=== PATIENT | male | born 1940 | race Caucasian/White ===

== ENCOUNTER 2017-08-10 05:55 | Day surgery (SDC) | payer OTHER ==
[~2017-08-10] VITALS: Ht 172.7 cm; Wt 88.5 kg
[~2017-08-10 05:55] MED LIST: ASPI81EC; FISH OIL PO; FLAX PO; Hair, Skin & N1 EACH PO; IRBHYD150; Lovastatin20 MG PO; SYSTANE BALANCE10 ML BOTHEYES; TIMO10T BOTHEYES; Travatan Z5 ML BOTHEYES; VALSARTAN-HCTZ1 EAC1 PO
== END 2017-08-10 22:55 | disposition home or self-care (01) ==
LOC: ORSCMMR 05:55 → ORD 07:30 → ORSCMMR 07:30
PROVIDERS: Surgery
PROC: 0YU50JZ Supplement Right Inguinal Region with Synthetic Substitute, Open Approach (ICD-10-PCS; principal; 2017-08-10 07:30)
DX: K40.91 Unilateral inguinal hernia, without obstruction or gangrene, recurrent (principal); Z87.891 Personal history of nicotine dependence; I10 Essential (primary) hypertension; E78.5 Hyperlipidemia, unspecified; Z79.82 Long term (current) use of aspirin; Z79.899 Other long term (current) drug therapy
CPT/HCPCS: C1781; J0690; J1100; J1885; J2250; J2405; J3010; J7120

== ENCOUNTER → 2022-09-29 | Outpatient (CLI) | payer OTHER ==
[2022-09-29 17:13] LABS: Creatinine Urine 79.2 mg/dL (27.00-270.00)
== END | disposition home or self-care (01) ==
LOC: LAB 06:00 → LAB SHORT 06:00 → LAB FUT 09-25 13:10
PROVIDERS: Internal Medicine Nephrology
DX: N18.30 Chronic kidney disease, stage 3 unspecified (principal); D63.1 Anemia in chronic kidney disease; N25.81 Secondary hyperparathyroidism of renal origin; E55.9 Vitamin D deficiency, unspecified; E78.00 Pure hypercholesterolemia, unspecified; N40.1 Benign prostatic hyperplasia with lower urinary tract symptoms; R76.9 Abnormal immunological finding in serum, unspecified; R94.5 Abnormal results of liver function studies; R94.6 Abnormal results of thyroid function studies; D51.8 Other vitamin B12 deficiency anemias; D52.8 Other folate deficiency anemias; D50.9 Iron deficiency anemia, unspecified
CPT/HCPCS: 81050; 82043; 82570; 84156

== ENCOUNTER 2022-11-13 18:51 | Inpatient (IN) | payer OTHER ==
[~2022-11-13] VITALS: Ht 175.3 cm; Wt 86.4 kg
[2022-11-13 19:31] LABS: Source, Urine Clean Catch
[2022-11-13] MEDS ORDERED: OLME20 PO (19:42)
[2022-11-13] MEDS ORDERED: ASPI81CH PO (19:42)
[2022-11-13 19:46] LABS: Bilirubin, Urine Neg (Neg); Blood, Urine 5+ (Neg); Color, Urine Red (P-Yellow); Glucose Qualitative, Urine Neg (Neg); Ketones, Urine Neg (Neg); Leukocyte Esterase, Urine Neg (Neg); Nitrite, Urine Neg (Neg); Protein, Urine 4+ (Neg); Urobilinogen, Urine NORM (Normal); pH, Urine 6.5 (5.0-8.0)
[2022-11-13 19:50] LABS: Red Blood Cells, Urine TNTC /hpf (0-2)
[2022-11-13 19:52] LABS: Bacteria Few /hpf; RBC Cast 0-2 /lpf (0); Squamous Epithelial Cells Rare /hpf (Few)
[2022-11-13 19:53] LABS: Appearance, Urine Bloody (Clear)
[2022-11-13 19:57] LABS: BASOPHILS ABSOLUTE AUTO 0.03 K/mm3 (0.00-0.23); BASOPHILS PERCENT AUTO 0 % (0-2); EOSINOPHILS ABSOLUTE AUTO 0.18 K/mm3 (0.00-0.68); EOSINOPHILS PERCENT AUTO 1 % (0-6); Hematocrit 31.5 % (37.0-53.0); Hemoglobin 10.3 g/dL (13.5-17.5); IMMATURE GRAN ABSOLUTE AUTO 0.12 K/mm3 (0.00-0.10); IMMATURE GRAN PERCENT AUTO 1 % (0-1); LYMPHOCYTES ABSOLUTE AUTO 1.71 K/mm3 (0.84-5.20); LYMPHOCYTES PERCENT AUTO 13 % (21-46); MONOCYTES ABSOLUTE AUTO 1.03 K/mm3 (0.16-1.47); MONOCYTES PERCENT AUTO 8 % (4-13); Mean Corpuscular HGB 30.8 pg (26.0-34.0); Mean Corpuscular HGB Conc 32.7 g/dL (31.5-36.5); Mean Corpuscular Volume 94 fL (80-100); Mean Platelet Volume 10.8 fL (9.1-12.4); NEUTROPHILS ABSOLUTE AUTO 10.53 K/mm3 (1.96-9.15); NEUTROPHILS PERCENT AUTO 77 % (41-73); Platelet Count 263 K/mm3 (150-400); RDW Coefficient Variation 13.4 % (11.7-14.2); RDW Standard Deviation 46.2 fL (35.1-46.3); Red Blood Cell Count 3.34 M/mm3 (4.30-5.90)
[2022-11-13 20:07] LABS: Albumin, Blood 3.4 g/dL (3.4-5.0); Albumin/Globulin Ratio 0.9 (0.8-1.8); Bilirubin, Total 0.3 mg/dL (0.1-1.0); Bun/Creatinine Ratio 12.9 (12.0-20.0); Calcium, Blood 8.6 mg/dL (8.5-10.1); Creatinine, Blood 1.7 mg/dL (0.60-1.20); Globulin, Blood 3.7 g/dL (2.2-4.0); Potassium, Blood 4.7 mmol/L (3.5-5.5); Total Protein, Blood 7.1 g/dL (6.4-8.2)
[2022-11-14 02:57] LABS: Hematocrit 28.3 % (37.0-53.0); Hemoglobin 9.2 g/dL (13.5-17.5)
[2022-11-14] MEDS ORDERED: TIMO.5OPSO BOTHEYES (04:43)
[2022-11-14] MEDS ORDERED: OLME20 PO (04:44)
[2022-11-14] MEDS ORDERED: LATANOPROST2.5 M3 BOTHEYES (04:45)
[2022-11-14 05:23] VITALS: BP 175/74
[2022-11-14 08:18] VITALS: BP 134/63
[2022-11-14 09:55] LABS: Hematocrit 28.7 % (37.0-53.0); Hemoglobin 9.5 g/dL (13.5-17.5)
[2022-11-14 15:32] LABS: BASOPHILS ABSOLUTE AUTO 0.02 K/mm3 (0.00-0.23); BASOPHILS PERCENT AUTO 0 % (0-2); EOSINOPHILS ABSOLUTE AUTO 0.08 K/mm3 (0.00-0.68); EOSINOPHILS PERCENT AUTO 1 % (0-6); Hematocrit 27.2 % (37.0-53.0); Hemoglobin 8.9 g/dL (13.5-17.5); IMMATURE GRAN ABSOLUTE AUTO 0.08 K/mm3 (0.00-0.10); IMMATURE GRAN PERCENT AUTO 1 % (0-1); LYMPHOCYTES ABSOLUTE AUTO 1.88 K/mm3 (0.84-5.20); LYMPHOCYTES PERCENT AUTO 18 % (21-46); MONOCYTES ABSOLUTE AUTO 1.28 K/mm3 (0.16-1.47); MONOCYTES PERCENT AUTO 12 % (4-13); Mean Corpuscular HGB 30.8 pg (26.0-34.0); Mean Corpuscular HGB Conc 32.7 g/dL (31.5-36.5); Mean Corpuscular Volume 94 fL (80-100); Mean Platelet Volume 10.7 fL (9.1-12.4); NEUTROPHILS PERCENT AUTO 69 % (41-73); Platelet Count 232 K/mm3 (150-400); RDW Coefficient Variation 13.5 % (11.7-14.2); RDW Standard Deviation 46.5 fL (35.1-46.3); Red Blood Cell Count 2.89 M/mm3 (4.30-5.90); White Blood Cell Count 10.74 K/mm3 (4.00-11.30)
[2022-11-14 15:57] LABS: Albumin, Blood 2.8 g/dL (3.4-5.0); Albumin/Globulin Ratio 0.8 (0.8-1.8); Bilirubin, Total 0.3 mg/dL (0.1-1.0); Bun/Creatinine Ratio 16.8 (12.0-20.0); Calcium, Blood 8.3 mg/dL (8.5-10.1); Creatinine, Blood 1.31 mg/dL (0.60-1.20); Globulin, Blood 3.3 g/dL (2.2-4.0); Potassium, Blood 4.4 mmol/L (3.5-5.5); Total Protein, Blood 6.1 g/dL (6.4-8.2)
[2022-11-14 16:27] VITALS: BP 123/65
[2022-11-14 19:57] VITALS: BP 124/62
--- NOTE | 2022-11-14 19:58 | NUR ---
SUMMARY- RN IRRIGATED MAGALLON MULTIPLE TIMES THIS SHIFT W/MANY BLOOD CLOTS. PT'S PAIN WELL CONTROLLED W/PAIN MEDS. CBI RUNNING THE ENTIRE SHIFT. 1L URINE OUTPUT THIS SHIFT.
[2022-11-14 21:26] LABS: Hematocrit 28.4 % (37.0-53.0); Hemoglobin 9.1 g/dL (13.5-17.5)
[2022-11-15 04:44] VITALS: BP 136/69
[2022-11-15 05:20] LABS: Hematocrit 26.7 % (37.0-53.0); Hemoglobin 8.5 g/dL (13.5-17.5); Mean Corpuscular HGB 30.4 pg (26.0-34.0); Mean Corpuscular HGB Conc 31.8 g/dL (31.5-36.5); Mean Corpuscular Volume 95 fL (80-100); Mean Platelet Volume 10.9 fL (9.1-12.4); Platelet Count 209 K/mm3 (150-400); RDW Coefficient Variation 13.6 % (11.7-14.2); RDW Standard Deviation 47.9 fL (35.1-46.3); White Blood Cell Count 10.17 K/mm3 (4.00-11.30)
[2022-11-15 05:42] LABS: Bun/Creatinine Ratio 14.6 (12.0-20.0); Calcium, Blood 8.3 mg/dL (8.5-10.1); Creatinine, Blood 1.44 mg/dL (0.60-1.20); Potassium, Blood 4.4 mmol/L (3.5-5.5)
--- NOTE | 2022-11-15 06:26 | NUR ---
SHIFT SUMMARY PT IS A&O4, SB TO THE BR, CBI PATENT AND DRAINING PINK FLUID, NO IRRIGATION NEEDED OVERNIGHT OR MANUAL CLOT REMOVAL, 1.2 L URINE OUTPUT FROM 3 WAY, PRN PAIN MEDICATION GIVEN PER MAR X1, NO ACUTE OVERNIGHT EVENTS, CONTINUE POC,
[2022-11-15 07:52] VITALS: BP 123/70
--- NOTE | 2022-11-15 16:08 | NUR ---
PT A/OX4, PLEASANT AND COOPERATIVE, THE PT IS UP WITH ASSIST DUE TO IV AND CONTINUOS IRRIGATION LINES. THIS AM THE PT HAD A CLOT BLOCKING IRRIGATION. THE CLOT WAS ASPIRRATED. SINCE THEN THE PTS URINE HAS CLEARED TO A LIGHT PINK THIS AFTERNOON AND THE IRRIGATION HAS BEEN CONTINUOS. THE PT WAS MEDICATED FOR PAIN X1 SO FAR THIS SHIFT FOR LOW BACK PAIN.PTS HAS BEEN AT THE BEDSIDE FOR MOST OF THE DAY. PT IS UP IN THE CHAIR T/O THE DAY. CALL LIGHT IN REACH. WILL CONTINUE TO MONIOTR AND ASSESS FOR CHANGES
[2022-11-15 16:41] VITALS: BP 126/62
[2022-11-15 19:33] VITALS: BP 142/54
[2022-11-16 03:59] VITALS: BP 138/63
[2022-11-16 08:18] VITALS: BP 144/72
[2022-11-16 08:59] LABS: Hematocrit 29.4 % (37.0-53.0); Hemoglobin 9.2 g/dL (13.5-17.5)
--- NOTE | 2022-11-16 09:00 | NUR ---
pt sitting up in a chair, at bedside, Dr. Olmedo in room to see pt, pt a/ox4 pleasant and cooperative with care, follows commands well, denies pain, lungs are clear t/o, resp even and unlabored, no cough noted, hrr, tele in place running sr per monitor, see strip, no edema noted, ppp+2, cap refill <3sec, vs stable, afebrile, iv site to selam is infiltrated, stopped fluids, Dr. Olmedo ok to hold fluids for now, pt eating and drinking well, btx4, abd flat soft nontender, voids via cbi, urine is slightly pink, was reported by night rn that there was one clot throughout the night, skin c/w/d, carlos eduardo zamudio, call light in reach.
--- NOTE | 2022-11-16 18:11 | NUR ---
pt cbi has intermitantly ran clear and watermelon color, he got up this afternoon to have a bm and became pretty red for a couple hrs, bladder started spasming so hand irrigated it, removed a few small clots, then ran clear again, he is currently running clear, no complaints or needs this shift. has been at bedside, call light in reach.
[2022-11-16 19:53] VITALS: BP 142/67
[2022-11-17 04:52] VITALS: BP 142/66
[2022-11-17 05:14] LABS: Hematocrit 25.8 % (37.0-53.0); Hemoglobin 8.2 g/dL (13.5-17.5)
--- NOTE | 2022-11-17 05:18 | NUR ---
PT IS A&O4, SB TO THE BR, CBI DRAINING WATERMELON COLORED FLUID, DARKER THAN PREVIOUS SHIFT, MANUALLY REMOVED ONE CLOT OVERNIGHT, PT IV INFILTRATED ON DAY SHIFT YESTERDAY THIS NURSE UNSUCESSFUL PLACING A NEW ONE, PAIN MED GIVEN PER MAR X1, RA, VSS, CONTINUE POC
[2022-11-17 08:48] VITALS: BP 145/62
[2022-11-17 16:42] VITALS: BP 143/64
--- NOTE | 2022-11-17 17:20 | NUR ---
SHIFT SUMMARY: Pt remains A&O x3 this shift. VSS, Resp even nonlabored on RA. Back pain managed with po med. CBI in progress this shift with Q 4 hour irrigation x24 hour started at noon. One small clot noted at 1600 irrigation. Other griffin pink in color output. Pain and safety managed. Call light in reach. at bedside. Will continue to monitor.
[2022-11-17 19:35] VITALS: BP 126/58
[2022-11-18 03:27] VITALS: BP 144/67
--- NOTE | 2022-11-18 05:02 | NUR ---
SHIFT SUMMARY 82 YR M ADMITTED ON 11/14/22 FOR HYDRONEPHROSIS. FULL CODE. NO ACUTE CHANGES THIS SHIFT. CONTINUOUS BLADDER IRRIGATION STILL RUNNING. Q 4 MANUAL IRRIGATION HAS PRODUCED VERY LIGHT PINK COME BACK WITH ONE VERY SMALL BLOODCLOT @ 0400. PT IS A&O X 4 AND APPEARS TO HAVE RESTED COMFORTABLY FOR MOST OF THIS SHIFT. C/O BACK PAIN AT BEDTIME AND ASKED FOR A PAINPILL BUT NO C/O PAIN OR DISCOMFORT SINCE THEN.
[2022-11-18 05:11] LABS: Hematocrit 23.1 % (37.0-53.0); Hemoglobin 7.2 g/dL (13.5-17.5)
[2022-11-18 05:28] LABS: Bun/Creatinine Ratio 14.7 (12.0-20.0); Calcium, Blood 7.8 mg/dL (8.5-10.1); Creatinine, Blood 1.29 mg/dL (0.60-1.20); Potassium, Blood 4.2 mmol/L (3.5-5.5)
[2022-11-18 07:44] VITALS: BP 154/72
[2022-11-18 11:53] LABS: Hematocrit 26.5 % (37.0-53.0); Hemoglobin 8.4 g/dL (13.5-17.5)
[2022-11-18 15:44] VITALS: BP 140/62
--- NOTE | 2022-11-18 17:38 | NUR ---
SHIFT SUMMARY: PT A&O X4. PT PLEASANT AND COOPERATIVE WITH ALL CARE. CONTINUOUS IRRIGATION CONTINUED UNTIL AROUND 1400. URINE WAS BRIGHT PINK THIS AM. SPED IRRIGATION UP AND LATER BECAME CLEAR. AT THIS TIME, DR. MUSTAFA STATED TO D/C CONTINUOUS IRRIGATION. CONTINUOUS REMAINS IN PLACE CLAMPED DUE TO POSSIBLE NEED TO RESTART IF URINE BECOME DARK. Q4 BLADDER IRRIGATION COMPLETED. PT C/0 BLADDER PAIN AROUND 1200. SMALL CLOT RELEASED WITH 1200 IRRIGATION. PT HAD NO C/O BLADDER PAIN SINCE. PT HAS CHRONIC BACK PAIN. PAIN MEDICATION GIVEN PER EMAR. PT RECEIVING NS @100/HR IN L. WRIST IV. AT BEDSIDE THROUGHOUT SHIFT. PT ONE PERSON ASSIST W/TRANSFERS. CALL LIGHT IN REACH. BED IN LOWEST POSITION. NO C/O PAIN AT THIS TIME. WILL CONTINUE TO MONITOR.
[2022-11-18 19:42] VITALS: BP 150/58
--- NOTE | 2022-11-18 20:51 | NUR ---
PER DR MUSTAFA'S REQUEST, CALLED TO SEE IF ANY UROLOGY/MEDICAL FOR UROLGY BEDS WERE AVAILABLE AT [facility]. SPOKE WITH [facility] IN [place], NO BEDS AVAILABLE, SPOKE WITH [facility] IN [place] AND [facility] IN [place], NO BEDS. SPOKE WITH [facility] IN [place], POSSIBLE BED IF THEY ARE ABLE TO COME OFF OF DIV[facility] WHICH MAY HAPPEN IN A COUPLE OF HOURS. SPOKE WITH SILVERIO TO LET HIM KNOW. WILL LET THE PRIMARY RN KNOW. WILL WAIT FOR A CALL FROM [facility] IN A COUPLE OF HOURS, IF I DON'T HEAR FROM THEM IN A COUPLE OF HOURS, I WILL CALL THEM AND CHECK ON THEIR BED AVAILABILITY.
--- NOTE | 2022-11-18 22:07 | NUR ---
[facility] CALLED BACK AND REPORTED THEY ARE NOT ABLE TO COME OFF OF DIVERT YET BUT FOR US TO CALL AND CHECK BACK IN THE AM. THEY HAVE A TICKET OPENED UP ON THE PATIENT AND WILL CALL US BACK IF THAT CHANGES AND A BED BECOMES AVAILABLE TONIGHT. WILL LET THE DR AND THE PRIMARY RN KNOW.
--- NOTE | 2022-11-18 22:58 | NUR ---
EMPTIED MAGALLON BAG, PINK, CLEAR, NO CLOTS. STARTED NEW BAG OF IRRIGATION FOR CBI. PT DENIES PRESSURE AT THIS TIME, NO LEAKING AROUND MAGALLON AT THIS TIME.
--- NOTE | 2022-11-18 23:16 | NUR ---
[facility] CALLED BACK AND REPORTED THEY HAD A BED AVAILABLE. PT WAS CONCERNED WITH HOW LONG HE WOULD BE WAITING FOR A PROCEDURE AND WHAT THEY MIGHT BE ABLE TO DO OR NOT. HE WAS ALSO CONCERNED ABOUT THE DISNTANCE AND PT WAS VERY CONCERNED ABOUT WHAT HIS WIFES WISHES WERE REGARDING POSSIBLY GOING TO [facility], AFTER MULTIPLE CALLS I WAS FINALLY ABLE TO SPEAK WITH HER AND SHE IS OK WITH HIM GOING TO [facility]. THE ACCEPTING UROLOGIST ALSO REPORTED THEY WOULD MOST LIKELY BE ABLE TO DO A SCOPE TOMORROW. I RELAYED THIS INFORMATION TO THE PT AND HE IS AGREEABLE TO THE TRANSFER. I WILL CALL THE DR HERE BACK AND LET HIM KNOW.
[2022-11-18 23:43] VITALS: BP 150/58
[2022-11-18 23:52] VITALS: BP 150/58
[2022-11-19 00:17] VITALS: BP 142/58
[2022-11-19 00:23] VITALS: BP 150/58
[2022-11-19 00:28] VITALS: BP 150/58
[2022-11-19 00:33] VITALS: BP 150/58
--- NOTE | 2022-11-19 01:00 | NUR ---
[facility] TRANSFER NOTE: CALLED REPORT TO GINNY BAIRD AT [facility] IN [place] ~0030 THIS AM. ALL QUESTIONS ANSWERED WITH NO FUTHER CONCERNS/QUESTIONS REPORTED. [facility] SHORTLY ARRIVED ~0055 THIS AM FOR TRANSPORT. [facility] DESIGNER GIVEN REPORT, ALL QUESTIONS ANSWERED WITH NO OTHER CONCERNS REPORTED. PT A/Ox4 AND COOPERATIVE WITH CARE. ABLE TO ANSWER QUESTIONS APPROPRIATELY AND ABLE TO MAKE HIS NEEDS KNOWN. CARDIAC, MED STATUS WITH NO TELE, NO REPORTS OF ANY CP OR PRESSURE. SBP STABLE RANGING IN THE 140-150 RANGE. RESPIRATORY, MAINTAINS SPO2 >92% ON RA WITH NO REPORTS OF SOB OR DYSPNEA EVEN WITH EXERTION. LS CLEAR TO ASCULTATION. GI/, MAGALLON CATH REMAINED PATENT AND DRAINING CLEAR-PINK/RED COLORED URINE. CBI UNDERWAY WITH INTERMITTENT EPISODES OF CATH BECOMING CLOGGED DUE TO BLOOD CLOTS. Q4HR MANUAL IRRIGATION WELL PRN TO MAINTAIN PATENCY PERFORMED ORDERED. ABD ABD SOFT SOME TENDERNESS NOTED ON LEFT FLANK. PAIN MANAGED WELL WITH PRN MEDICATIONS. PT ABLE TO ABULATE WITH SBA DUE TO CATH/IRRIGATION EQUIPMENT. NS INFUSING ORDERED VIA EMAR. ASSESSED PT FOR RISKS OF ANY IGNITION SOURCES WELL BEHAVIORS FOR INCREASED RISKS OF FIRE DANGER. PT EDUCATED ON COMMON SOURCES OF IGNITION WELL NEED TO KEEP A SAFE ENVIRONMENT. PT VOICED HIS UNDERSTANDING WHILE HE WAS HERE. FLO [facility] UPON TRANSFER TO [facility].
== END 2022-11-19 00:56 | DRG 694 ==
LOC: ER 18:51 → ERHOLD 18:52 → MEDS 18:52 → ERHOLD 11-14 05:10 → MEDS 11-14 05:10 → ERHOLD 11-14 15:21 → MEDS 11-14 15:21
PROVIDERS: Internal Medicine; Physician Assistant; Student in an Organized Health Care Education/Training Program; ADMIT Internal Medicine
DX: N13.30 Unspecified hydronephrosis (principal); R33.9 Retention of urine, unspecified; R00.0 Tachycardia, unspecified; R31.0 Gross hematuria; N17.9 Acute kidney failure, unspecified; E78.5 Hyperlipidemia, unspecified; I12.9 Hypertensive chronic kidney disease with stage 1 through stage 4 chronic kidney disease, or unspecified chronic kidney disease; N18.30 Chronic kidney disease, stage 3 unspecified; D63.1 Anemia in chronic kidney disease; R91.1 Solitary pulmonary nodule; H40.9 Unspecified glaucoma; J92.9 Pleural plaque without asbestos; Z79.82 Long term (current) use of aspirin; Z79.899 Other long term (current) drug therapy
CPT/HCPCS: 36415; 51703; 51798; 74177; 80048; 80053; 81001; 85014; 85018; 85025; 85027; 86850; 86900; 86901; 93005; 93010; 96374; 99285-25; A9270; J3010; J7030; Q9967

== ENCOUNTER → 2022-12-08 | Outpatient (CLI) | payer OTHER ==
[~2022-12-08] MED LIST changes: +ASPI81CH PO; +LATANOPROST2.5 M3 BOTHEYES; +OLME20 PO; +TIMO.5OPSO BOTHEYES
[2022-12-08 16:05] LABS: Microalbumin, Urine Quant. 72.5 mg/L (0.000-20.000)
== END | disposition home or self-care (01) ==
LOC: LAB 09:56 → LAB SHORT 09:56 → LAB FUT 12-02 11:35
PROVIDERS: Internal Medicine Nephrology
DX: N18.30 Chronic kidney disease, stage 3 unspecified (principal); D63.1 Anemia in chronic kidney disease; N25.81 Secondary hyperparathyroidism of renal origin; E55.9 Vitamin D deficiency, unspecified; E78.00 Pure hypercholesterolemia, unspecified; N40.1 Benign prostatic hyperplasia with lower urinary tract symptoms; R76.9 Abnormal immunological finding in serum, unspecified; R94.5 Abnormal results of liver function studies; R94.6 Abnormal results of thyroid function studies
CPT/HCPCS: 81050; 82043; 82570; 84156

== ENCOUNTER → 2023-01-07 | Outpatient (CLI) | payer OTHER ==
[2023-01-07 12:09] LABS: Hematocrit 28.1 % (37.0-53.0); Mean Corpuscular HGB 29.2 pg (26.0-34.0); Mean Corpuscular Volume 91 fL (80-100); Mean Platelet Volume 11.7 fL (9.1-12.4); NRBC ABSOLUTE 0.04 K/mm3 (0.00-0.02); NRBC Auto 0.7 /100 WBC (0.0-0.2); Platelet Count 103 K/mm3 (150-400); RDW Coefficient Variation 14.5 % (11.7-14.2); RDW Standard Deviation 48.1 fL (35.1-46.3); Red Blood Cell Count 3.08 M/mm3 (4.30-5.90); White Blood Cell Count 5.56 K/mm3 (4.00-11.30)
[2023-01-07 12:19] LABS: Albumin, Blood 2.5 g/dL (3.4-5.0); Albumin/Globulin Ratio 0.7 (0.8-1.8); Bilirubin, Total 0.1 mg/dL (0.1-1.0); Bun/Creatinine Ratio 12.8 (12.0-20.0); Calcium, Blood 7.8 mg/dL (8.5-10.1); Creatinine, Blood 2.74 mg/dL (0.60-1.20); Globulin, Blood 3.8 g/dL (2.2-4.0); Potassium, Blood 4.5 mmol/L (3.5-5.5); Total Protein, Blood 6.3 g/dL (6.4-8.2)
[2023-01-07 16:39] LABS: BAND PERCENT MAN 4 % (0-8); BASOPHILS PERCENT MAN 0 % (0-2); EOSINOPHILS PERCENT MAN 0 % (0-6); LYMPHOCYTES % ATYPICAL MANUAL 2 % (0-0); LYMPHOCYTES ABSOLUTE MAN 0.83 K/mm3 (0.84-5.20); LYMPHOCYTES PERCENT MAN 13 % (21-46); METAMYELOCYTE ABSOLUTE MAN 0.11 K/mm3 (0.00-0.00); METAMYELOCYTE PERCENT MAN 2 % (0-0); MONOCYTES ABSOLUTE MAN 0.11 K/mm3 (0.16-1.47); MONOCYTES PERCENT MAN 2 % (4-13); MYELOCYTE ABSOLUTE MAN 0.27 K/mm3 (0.00-0.00); MYELOCYTE PERCENT MAN 5 % (0-0); NEUTROPHILS ABSOLUTE MAN 4.22 K/mm3 (1.96-9.15); SEG NEUTROPHILS PERCENT MAN 72 % (41-73); TOTAL CELLS COUNTED 100
== END ==
LOC: LAB SHORT 10:45 → LAB EV 10:45
PROVIDERS: Internal Medicine Hematology & Oncology
DX: C67.9 Malignant neoplasm of bladder, unspecified (principal)
CPT/HCPCS: 80053; 85025

== ENCOUNTER 2023-04-03 07:30 | Day surgery (SDC) | payer OTHER ==
[~2023-04-03] VITALS: Ht 175.3 cm; Wt 82.6 kg
[2023-04-03] VITALS (11 sets, daily range): BP systolic 113–144; BP diastolic 61–76
--- NOTE | 2023-04-03 11:15 | NUR ---
PT TO DAY SURGERY STEP DOWN FROM PACU; REPORT RECEIEVED FROM GINNY FRANCIS. PT AWAKE, ALERT AND ORIENTED; ABLE TO MOVE SELF IN BED. VSS. NO COMPLAINTS FROM PT.
--- NOTE | 2023-04-03 11:16 | NUR ---
PT HAD MEDIPORT PLACED ON UPPER RIGHT CHEST. INCISION IS COVERED WITH GUAZE AND TRANSPARENT TAPE; IT IS C/D/I. PT ALSO HAS 1 STERI STRIP ON NECK THAT IS C/D/I
--- NOTE | 2023-04-03 11:30 | NUR ---
BOTH INCISIONS REMAIN C/D/I
--- NOTE | 2023-04-03 11:38 | NUR ---
Discharge instructions reviewed with patient. Patient verbalizes understanding. Copy given to patient to take home. Patient States Post-Procedure ride home has been arranged.
--- NOTE | 2023-04-03 11:48 | NUR ---
Patient up to Ambulate independently. Gait steady. PT UP TO BATHROOM.
--- NOTE | 2023-04-03 11:49 | NUR ---
PT TOLERATING PO FLUIDS AND CRACKERS WELL. PT AT BEDSIDE.
--- NOTE | 2023-04-03 11:56 | NUR ---
Discharged via wheelchair to private car for ride home.
== END 2023-04-03 11:57 | disposition home or self-care (01) ==
LOC: ORSCMMR 07:30 → ORD 09:00 → ORSCMMR 11:57
PROVIDERS: Surgery
PROC: 0JH60WZ Insertion of Totally Implantable Vascular Access Device into Chest Subcutaneous Tissue and Fascia, Open Approach (ICD-10-PCS; principal; 2023-04-03 09:00)
DX: C67.8 Malignant neoplasm of overlapping sites of bladder (principal); Z78.9 Other specified health status; I10 Essential (primary) hypertension; I12.9 Hypertensive chronic kidney disease with stage 1 through stage 4 chronic kidney disease, or unspecified chronic kidney disease; N18.9 Chronic kidney disease, unspecified; E78.5 Hyperlipidemia, unspecified; Z79.82 Long term (current) use of aspirin; Z79.899 Other long term (current) drug therapy
CPT/HCPCS: 77001; A9270; C1788; J0330; J0690; J1100; J1642; J2371; J2405; J2704; J3010; J7120

== ENCOUNTER → 2023-05-12 | Outpatient (CLI) | payer OTHER ==
[2023-05-12 15:41] LABS: Appearance, Urine Hazy (Clear); Bilirubin, Urine Neg (Neg); Blood, Urine 4+ (Neg); Glucose Qualitative, Urine Neg (Neg); Ketones, Urine Neg (Neg); Leukocyte Esterase, Urine 2+ (Neg); Nitrite, Urine Neg (Neg); Protein, Urine 2+ (Neg); Specific Gravity, Urine 1.015 (1.003-1.022); Urobilinogen, Urine NORM (Normal)
[2023-05-12 15:53] LABS: Color, Urine Pale Yellow (P-Yellow)
[2023-05-12 15:54] LABS: Bacteria Few /hpf; Squamous Epithelial Cells Rare /hpf (Few); White Blood Cells, Urine TNTC /hpf (0-5)
== END ==
LOC: LAB 15:07 → LAB SHORT 15:07
PROVIDERS: Nurse Practitioner Family
DX: Z51.0 Encounter for antineoplastic radiation therapy (principal); C67.8 Malignant neoplasm of overlapping sites of bladder
CPT/HCPCS: 81001; 87077; 87086; 87186

== ENCOUNTER 2023-08-06 03:21 | Day surgery (SDC) | payer OTHER ==
[2023-08-06] MEDS ORDERED: NS 250 ML IV SCH (06:55)
[2023-08-06 13:30] VITALS: BP 103/45
[2023-08-06 13:55] VITALS: BP 98/48
[2023-08-06 14:55] VITALS: BP 103/46
[2023-08-06 15:35] VITALS: BP 122/50
== END 2023-08-06 15:45 | disposition home or self-care (01) ==
LOC: ATC 03:21 → EDSTATUS 13:30 → ATC 15:45
DX: C67.8 Malignant neoplasm of overlapping sites of bladder (principal); I12.9 Hypertensive chronic kidney disease with stage 1 through stage 4 chronic kidney disease, or unspecified chronic kidney disease; N18.9 Chronic kidney disease, unspecified; E78.5 Hyperlipidemia, unspecified; Z87.891 Personal history of nicotine dependence; Z79.82 Long term (current) use of aspirin; Z79.899 Other long term (current) drug therapy
CPT/HCPCS: 36430; 86850; 86900; 86901; 86923; J1642; J7050; P9016

== ENCOUNTER 2023-11-18 11:49 | Emergency (ER) | payer OTHER ==
[~2023-11-18] VITALS: Ht 175.3 cm; Wt 72.1 kg
[2023-11-18 12:40] LABS: BASOPHILS ABSOLUTE AUTO 0.03 K/mm3 (0.00-0.23); BASOPHILS PERCENT AUTO 1 % (0-2); EOSINOPHILS ABSOLUTE AUTO 0.15 K/mm3 (0.00-0.68); EOSINOPHILS PERCENT AUTO 3 % (0-6); Hematocrit 30.6 % (37.0-53.0); Hemoglobin 9.2 g/dL (13.5-17.5); IMMATURE GRAN ABSOLUTE AUTO 0.05 K/mm3 (0.00-0.10); IMMATURE GRAN PERCENT AUTO 1 % (0-1); LYMPHOCYTES PERCENT AUTO 21 % (21-46); MONOCYTES ABSOLUTE AUTO 0.75 K/mm3 (0.16-1.47); MONOCYTES PERCENT AUTO 13 % (4-13); Mean Corpuscular HGB 28.8 pg (26.0-34.0); Mean Corpuscular HGB Conc 30.1 g/dL (31.5-36.5); Mean Corpuscular Volume 96 fL (80-100); Mean Platelet Volume 10.3 fL (9.1-12.4); NEUTROPHILS ABSOLUTE AUTO 3.66 K/mm3 (1.96-9.15); NEUTROPHILS PERCENT AUTO 63 % (41-73); Platelet Count 239 K/mm3 (150-400); RDW Coefficient Variation 20.4 % (11.7-14.2); RDW Standard Deviation 71.1 fL (35.1-46.3); White Blood Cell Count 5.84 K/mm3 (4.00-11.30)
[2023-11-18 12:55] LABS: Albumin, Blood 2.1 g/dL (3.4-5.0); Albumin/Globulin Ratio 0.4 (0.8-1.8); Bilirubin, Total 0.5 mg/dL (0.1-1.0); Bun/Creatinine Ratio 11.8 (12.0-20.0); Calcium, Blood 8.2 mg/dL (8.5-10.1); Creatinine, Blood 2.04 mg/dL (0.60-1.20); Globulin, Blood 4.8 g/dL (2.2-4.0); Potassium, Blood 4.3 mmol/L (3.5-5.5); Total Protein, Blood 6.9 g/dL (6.4-8.2)
[2023-11-18 13:50] LABS: Source, Urine Clean Catch
[2023-11-18 14:05] LABS: Appearance, Urine Hazy (Clear); Bilirubin, Urine Neg (Neg); Blood, Urine 3+ (Neg); Color, Urine Yellow (P-Yellow); Glucose Qualitative, Urine Neg (Neg); Ketones, Urine Neg (Neg); Leukocyte Esterase, Urine 3+ (Neg); Nitrite, Urine Neg (Neg); Protein, Urine 2+ (Neg); Urobilinogen, Urine NORM (Normal); pH, Urine 6.5 (5.0-8.0)
[2023-11-18 14:35] LABS: Bacteria Few /hpf; Squamous Epithelial Cells Rare /hpf (Few)
[2023-11-18] MEDS ORDERED: Lactated Ringer's 1,000 ML IV ONE (14:50)
[2023-11-18 16:00] VITALS: BP 126/89
== END 2023-11-18 16:30 | disposition home or self-care (01) ==
LOC: ER 11:49
PROVIDERS: Physician Assistant
DX: R47.1 Dysarthria and anarthria (principal); Z79.82 Long term (current) use of aspirin; Z79.899 Other long term (current) drug therapy
CPT/HCPCS: 70450; 80053; 81001; 85025; 87077; 87086; 87186; 99285-25; J7120

== ENCOUNTER 2023-12-23 05:25 | Emergency (ER) | payer OTHER ==
[~2023-12-23] VITALS: Ht 175.3 cm; Wt 72.6 kg
[2023-12-23 07:59] VITALS: BP 131/77
== END 2023-12-23 07:55 | disposition home or self-care (01) ==
LOC: ER 05:25
DX: T83.021A Displacement of indwelling urethral catheter, initial encounter (principal); I12.9 Hypertensive chronic kidney disease with stage 1 through stage 4 chronic kidney disease, or unspecified chronic kidney disease; N18.30 Chronic kidney disease, stage 3 unspecified; E78.5 Hyperlipidemia, unspecified; Z85.51 Personal history of malignant neoplasm of bladder; Z87.891 Personal history of nicotine dependence; Z79.82 Long term (current) use of aspirin; Z79.899 Other long term (current) drug therapy
CPT/HCPCS: 99283